=== PATIENT | female | born 2000 | race Caucasian/White ===

== ENCOUNTER 2024-11-07 12:20 | Emergency (ER) | payer MEDICAID, BC ==
[2024-11-07] MEDS ORDERED: Sodium Chloride 0.9% 10 ML Syringe FLUSH PRN (12:33)
[2024-11-07] MEDS: EPINEPHrine 1 MG/1 ML Amp IM ONE (12:52)
[2024-11-07] MEDS: methylPREDNISolone Sodium Succinate 125 MG/2 ML SDV IV ONE (12:54)
[2024-11-07] MEDS: diphenhydrAMINE 50 MG/ML SDV IVPUSH ONE (12:56)
[2024-11-07] MEDS: Famotidine 20 MG/2 ML SDV IVPUSH ONE (12:58)
[2024-11-07 13:06] LABS: BASOPHILS PERCENT AUTO 0.4 % (0.2-1.2); EOSINOPHILS ABSOLUTE AUTO 0.5 x10^3/uL (0.0-0.5); EOSINOPHILS PERCENT AUTO 6.3 % (0.0-4.0); HEMATOCRIT 36.4 % (33.0-47.0); HEMOGLOBIN 12.6 g/dL (12.0-16.0); IMMATURE GRAN ABSOLUTE AUTO 0.01 x10^3/uL (0.00-0.07); LYMPHOCYTES PERCENT AUTO 25.9 % (25.0-50.0); MEAN CORPUSCULAR HEMOGLOBIN 28.9 pg (26.0-32.0); MEAN CORPUSCULAR HGB CONC 34.6 g/dL (32.0-36.0); MEAN CORPUSCULAR VOLUME 83.5 fL (78.0-93.0); MONOCYTES ABSOLUTE AUTO 0.8 x10^3/uL (0.0-0.8); MONOCYTES PERCENT AUTO 10.6 % (2.0-11.0); NEUTROPHILS ABSOLUTE AUTO 4.4 x10^3/uL (1.8-7.7); NEUTROPHILS PERCENT AUTO 56.7 % (50.0-80.0); PLATELET COUNT,PLT 304 x10^3/uL (130-400); RED BLOOD CELL COUNT 4.36 x10^6/uL (4.00-5.50); WHITE BLOOD CELL COUNT,WBC 7.8 x10^3/uL (4.0-10.0)
[2024-11-07 13:16] LABS: BLOOD UREA NITROGEN,BUN 9 mg/dL (7-18); CARBON DIOXIDE,CO2 29 mmol/L (21-32); CHLORIDE,CL 106 mmol/L (98-107); CREATININE 0.6 mg/dL (0.55-1.02); GLUCOSE RANDOM 73 mg/dL (70-99); SODIUM,NA 142 mmol/L (136-145)
[2024-11-07 13:19] LABS: ESTIMATED GFR 129 mL/min (>=60)
== END 2024-11-07 16:13 | disposition home or self-care (01) ==
LOC: VM.ED 12:20
DX: T78.40XA Allergy, unspecified, initial encounter (principal); Z88.7 Allergy status to serum and vaccine
CPT/HCPCS: 80048; 85025; 96372; 96374; 96375; 99283; 99284-25; J0171; J1200; J2919; J3490